=== PATIENT | male | born 1975 | race African-American/Black ===

== ENCOUNTER → 2016-02-15 | Outpatient (CLI) | payer OTHER | LOC: RAD 11:01 | DX: L40.0 Psoriasis vulgaris (principal); Z79.899 Other long term (current) drug therapy; R05 Cough ==

== ENCOUNTER → 2017-04-28 | Outpatient (CLI) | payer OTHER | LOC: RAD 09:11 | DX: L40.0 Psoriasis vulgaris (principal); Z79.899 Other long term (current) drug therapy ==

== ENCOUNTER → 2019-09-28 | Outpatient (CLI) | payer BC | LOC: RAD 11:28 | PROVIDERS: ATTEND Physician Assistant | DX: L40.0 Psoriasis vulgaris (principal); Z79.899 Other long term (current) drug therapy ==